=== PATIENT | female | born 1980 | race Caucasian/White ===

== ENCOUNTER 2022-02-09 14:14 | Outpatient (CLI) | payer OTHER ==
[~2022-02-09 14:14] MED LIST: ATARAX25 MG PO; PREDNISONE10 MG PO; ZYRTEC10 M3 PO
== END 2022-02-09 14:31 | disposition home or self-care (01) ==
LOC: RAD 14:14 → MRI 14:14 → RAD 14:31
PROVIDERS: ATTEND Orthopaedic Surgery
DX: M25.561 Pain in right knee (principal); M25.562 Pain in left knee; S83.200A Bucket-handle tear of unspecified meniscus, current injury, right knee, initial encounter
CPT/HCPCS: 73721